=== PATIENT | female | born 1980 | race Caucasian/White ===

== ENCOUNTER 2018-01-03 10:09 | Day surgery (SDC) | payer OTHER, SELFPAY ==
[2018-01-03] VITALS (13 sets, daily range): BP systolic 71–114; BP diastolic 41–72; PULSE 55–84; RESP 14–16; TEMP 36.2–36.4; O2SAT 94–100; BMI 33.8
--- NOTE | 2018-01-03 | POC_PTH ---
PATIENT: BRITT BLACKMON LOC: [facility] – [place] U#:[id number] AGE/SX: 37/F ROOM: RE01/03/[address]: Dr. Radha De La Fuente, MDDOB: 1980 BED: DIS: 01/03/2018 SPEC #: [id number] RECD: 01/03/18 12:53 STATUS: BENNIE REBonnie #: [id number] SILVERIO: 01/03/18 00:[address]: Radha De La Fuente DEPT: SURGICAL PATHOLOGY RECD BY: Chintan Bah ENTERED: 01/03/18 12:53 SP TYPE: PROD CONC OTHR DR: No Primary Care Phys Tissues: Product of conception, NOS Procedures: Surgery Specimen Level IV HEADER OPERATION: Dilation and curettage, suction PRE-OP DIAGNOSIS: Six week missed , recurrent loss TISSUE SUBMITTED: Products of conception for genetic testing MICROSCOPIC DIAGNOSIS Endometrium, curettage: Scant chorionic villi, decidualized stroma and trophoblastic cells consistent with products of conception. AM:moses 01/04/18 MICROSCOPIC DESCRIPTION Slides are reviewed. GROSS DESCRIPTION Received in fixative is one container labeled with the patient's name and designated products of conception. The specimen consists of multiple irregular fragments of pink-gilbert soft tissue that in aggregate measure 4.5 x 3 x 0.2 cm. Portions of the tissue are submitted for genetic testing. The remainder of the specimen is submitted in two cassettes. 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 Please see complete report in e-chart or EMR for further details
[2018-01-03 10:49] LABS: Hematocrit 38.5 % (37-47); Hemoglobin 13.3 g/dl (12.0-15.0); Mean Corp Hgb Conc 34.5 g/gl (32-36); Mean Corpuscular Hgb 31.5 pg (27.0-32.0); Mean Corpuscular Volume 91.2 fL (81-99); Mean Platelet Vol. 9.5 fl (6.2-12.0); Platelet Count 286 K/mm3 (150-450); RBC Distribution Width CV 11.8 % (11.6-14.6); Red Blood Count 4.22 M/mm3 (4.2-5.4); White Blood Count 5.7 K/mm3 (4.4-11.0)
[2018-01-03 10:50] LABS: Scan Indicated on CBC? Y/N NO
[2018-01-03] MEDS: Doxycycline 100 MG CAPSULE 200 MG PO (11:25)
--- NOTE | 2018-01-03 11:57 | DCINST_ITS ---
Discharge Diet: No Restrictions Discharge Activity: Return to Normal Activity, May Shower, May Take a Tub Bath - in 2 weeks. May resume sexual activity in: 2 weeks Call your doctor if you observe: Fever of 101 or Higher, Using more than one pad per hour Allergies/Adverse Reactions: Allergies No Known Allergies Allergy (Verified 01/02/18 14:01) Medications to take at Discharge Aspirin [Aspirin, Baby] 81 mg PO DAILY@0800 01/02/18 Levothyroxine Sodium 100 mcg PO DAILY 01/02/18 Vits [Prenatabs FA] 1 tablet PO DAILY 01/02/18 Primary Care Physician: Care Physician,No Primary [Primary Care Provider] - Test Results: Test results from this visit will be discussed in further detail at your follow- up appointment, if applicable. Please Follow Up With: Radha De La Fuente MD When: 2 weeks post op
--- NOTE | 2018-01-03 12:20 | PCM.OPRPT ---
Report of Operation Date of Procedure: 01/03/18 Pre-Operative Diagnosis: missed , recurrent loss Post-Operative Diagnosis: same Surgery/Procedure Performed:: suction D&C Description of Surgical Findings:: Uterus anteverted approximately 7 weeks size. 7mm suction catheter used. No complications Type of Anesthesia:: MAC Specimen's removed: products of conception sent for genetic studies Estimated Blood Loss (mL): 5 Fluids Replaced: 1000 Description of Procedure: After informed consent was obtained patient was taken to OR and placed in supine position. Anesthesia was given. patient was placed in yellow fin stirrups and prepped and draped in normal sterile fashion. bladder was drained with straight catheter with approximately 150ccof clear yellow urine expelled. Weighted speculum placed in posterior fornix of vaginal, single tooth tenaculum was used to gently grasped anterior lip of cervix. . Cervix was then gently dilated in an incremental fashion. Was adequate dilation was achieved the 7mm suction catheter was placed. suction curettage performed until no tissue was expelled and cavity was deemed empty. The tissue was then sent to pathology where it will be sent for genetic testing. No complications. At this time procedure was deemed complete and successful. Tenaculum removed, speculum removed. Good hemostasis appreciated. Vaginal sweep was negative. Instrument and lap count correct x 2. I anticipate normal postoperative course. Grafts/Implants Used: no - Complications none - Admit VTE Documentation VTE Present on Admission: Yes VTE Mechan Device Prophylaxis: SCD's VTE Pharm Prophylaxis ordered?: No
[2018-01-03] MEDS: HYDROcodone Bitartrate/Apap 5/325 Tablet PO (13:33)
== END 2018-01-03 14:20 | disposition home or self-care (01) ==
LOC: SDC 10:11 → AC 10:13
PROVIDERS: Referring Provider Obstetrics & Gynecology; Visit Provider Obstetrics & Gynecology
PROC: (CPT 59820; principal; 2018-01-03 11:50)
DX: O02.1 Missed abortion (principal); E03.9 Hypothyroidism, unspecified; Z79.02 Long term (current) use of antithrombotics/antiplatelets; Z79.891 Long term (current) use of opiate analgesic; Z79.899 Other long term (current) drug therapy
CPT/HCPCS: 01965; 59820; 85027; 86850; 86900; 88305; J7120; J2405